=== PATIENT | male | born 1950 | race Caucasian/White ===

== ENCOUNTER 2022-05-10 01:19 | Day surgery (SDC) | payer MEDICARE, SELFPAY ==
[2022-04-26 14:15] VITALS: BMI 30.7
[2022-05-10 06:27] VITALS: BP 120/75; PULSE 85; RESP 18; TEMP 36.1; O2SAT 98
[2022-05-10] MEDS: LACTATED RINGERS 1,000 ML 150 ML IV CONT (06:41)
--- NOTE | 2022-05-10 07:13 | WPDANESEPPF ---
Anes - Initial Pre Proc Eval Procedure: Operation Date: 05/10/22 07:30 Proposed Procedures p Screening Colonoscopy - Roderick Lee MD Date/Time: 05/10/22 07:13 Surgeon: Roderick Lee MD Pre Op Diagnosis: hx colon polyps Patient Data Age: 71 Gender: M Height: 1.8 m Weight: 89.3 kg Last Vital Signs Temp 97 F L 05/10/22 06:27 Pulse 85 05/10/22 06:27 Resp 18 05/10/22 06:27 BP 120/75 05/10/22 06:27 Pulse Ox 98 05/10/22 06:27 O2 Del Method Room Air 05/10/22 06:27 Allergies Allergy/AdvReac Type Severity Reaction Status Date / Time clindamycin Allergy Unknown Abdominal Verified 05/10/22 06:25 pain Home Medications Medication Instructions Recorded Confirmed Type naproxen sodium 220 mg capsule 220 mg PO BID 05/20/19 04/26/22 History sildenafil 100 mg tablet 100 mg PO DAILY PRN sexual 08/11/21 04/26/22 Rx activity #12 tabs levothyroxine 75 mcg tablet 75 mcg PO DAILY 04/26/22 04/26/22 History Patient hx anesthesia problems: none Family hx anesthesia problems: none Results Review: All pre-operative results and documents have been reviewed as part of the pre-operative evaluation. [facility] Past Medical History Medical History Arthritis Hepatitis C antibody test negative (11/05/19) Hx of adenomatous colonic polyps Hx of melanoma of skin Hx of skin cancer, basal cell Hx of squamous cell carcinoma of skin Hypothyroidism Overweight Rectal bleed Surgical History Surgical History History of local excision of skin lesion Hx of arthroscopy of left knee Hx of colonoscopy Hx of hemorrhoidectomy Hx of repair of left rotator cuff (~2018) Family History Family History Father Family history of tuberculosis Depression Family history of genitourinary disease Family history of hearing loss Family history of mental disorder Family history of elevated blood lipids Family history of Alzheimer's disease Mother Hypertension Family history of arthritis Family history of congestive heart failure Grandparent Family history of cardiovascular disease Acute myocardial infarction, Onset Age: 50 Family history of coronary artery disease Other Family history of hypercholesterolemia Family history of malignant neoplasm of skin Social History Social History Smoking status: Never smoker Alcohol intake: never Substance use: never Substance use type: does not use Living arrangements: with family 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 Informed Consent: The patient's anesthetic plan and its attendant risks and benefits were discussed with the patient/family/POA. Questions were solicited and answers provided to the satisfaction of the patient/family/POA.
--- NOTE | 2022-05-10 07:28 | PM.HPGS ---
History of Present Illness History of Present Illness Consent: Risks, benefits, and alternatives have been discussed and questions answered. Patient agrees to proceed with procedure. Chief complaint: hx colon polyps Narrative: Per Ayala is a 71 year old male with colon polyp in 2019 Review of Systems Constitutional: Constitutional: Denies headache(s) and Denies weakness Eyes: Eyes: Denies blurry vision ENT: Reports Normal hearing present, Denies headache(s) and Denies neck pain Cardiovascular: Cardiovascular: Denies chest pain and Denies dyspnea Respiratory: Respiratory: Denies dyspnea Gastrointestinal: Gastrointestinal: Reports no additional gastrointestinal complaints Genitourinary: Genitourinary: Denies dysuria Musculoskeletal: Musculoskeletal: Denies neck pain Integumentary/Breasts: Skin/Breast: Denies dry skin Neurologic: Reports Normal hearing present, Denies headache(s) and Denies weakness Psychiatric: Psychiatric: Denies anxiety Endocrine: Endocrine: Denies change in body appearance Hematologic/Lymphatic: Hematologic/Lymphatic: Denies easy bleeding Allergic/Immunologic: Allergic/Immunologic: Denies urticaria PMFSH Past Medical History Medical History Arthritis Hepatitis C antibody test negative (11/05/19) Hx of adenomatous colonic polyps Hx of melanoma of skin Hx of skin cancer, basal cell Hx of squamous cell carcinoma of skin Hypothyroidism Overweight Rectal bleed Surgical History Surgical History History of local excision of skin lesion Hx of arthroscopy of left knee Hx of colonoscopy Hx of hemorrhoidectomy Hx of repair of left rotator cuff (~2017) Family History Family History Father Family history of tuberculosis Depression Family history of genitourinary disease Family history of hearing loss Family history of mental disorder Family history of elevated blood lipids Family history of Alzheimer's disease Mother Hypertension Family history of arthritis Family history of congestive heart failure Grandparent Family history of cardiovascular disease Acute myocardial infarction, Onset Age: 50 Family history of coronary artery disease Other Family history of hypercholesterolemia Family history of malignant neoplasm of skin Social History Social History Smoking status: Never smoker Alcohol intake: never Substance use: never Substance use type: does not use Living arrangements: with family 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 Gender identity (if verbalized by the patient): Male Spiritual care concerns: No Meds Home Medications and Allergies Home Medications Medication Instructions Recorded Confirmed Type naproxen sodium 220 mg capsule 220 mg PO BID 05/20/19 04/26/22 History sildenafil 100 mg tablet 100 mg PO DAILY PRN sexual 08/11/21 04/26/22 Rx activity #12 tabs levothyroxine 75 mcg tablet 75 mcg PO DAILY 04/26/22 04/26/22 History Allergies Allergy/AdvReac Type Severity Reaction Status Date / Time clindamycin Allergy Unknown Abdominal Verified 05/10/22 06:25 pain Vital Signs Vital Signs - 24 hr 05/10/22 06:27 Temperature 97 F L Pulse Rate 85 Respiratory Rate 18 Blood Pressure 120/75 Pulse Oximetry 98 Oxygen Delivery Room Air Exam Const: General: comfortable and no acute distress HENMT: Face/Nose/Sinus: Normal nares present Eyes: General: appearance normal, both eyes and all related structures Neck: Neck: no JVD Resp: Auscultation: clear to auscultation bilaterally Cardio: Rate: regular rate Rhythm: regular rhythm GI: Inspection: non-distended GI Palp: Yes Soft to palpation Skin: General skin exam: normal color Neuro: General: gait normal Sp
[2022-05-10 07:50] VITALS: BP 86/58; PULSE 81; RESP 21; O2SAT 96
[2022-05-10 08:00] VITALS: BP 82/53; PULSE 77; RESP 22; O2SAT 96
[2022-05-10 08:10] VITALS: BP 91/60; PULSE 76; RESP 50; O2SAT 98
== END 2022-05-10 08:24 | disposition home or self-care (01) ==
PROVIDERS: PCP Family Medicine; Visit Provider Internal Medicine Gastroenterology
PROC: 0DJD8ZZ Inspection of Lower Intestinal Tract, Via Natural or Artificial Opening Endoscopic (ICD-10-PCS; CPT 45378; principal; 2022-05-10 07:30)
DX: Z12.11 Encounter for screening for malignant neoplasm of colon (principal); K57.30 Diverticulosis of large intestine without perforation or abscess without bleeding; K64.8 Other hemorrhoids; Z86.010 Personal history of colon polyps; E03.9 Hypothyroidism, unspecified
CPT/HCPCS: G0105; J2704; J7120